=== PATIENT | male | born 1960 ===

== ENCOUNTER → 2021-02-12 | Day surgery (SDC) | payer OTHER | END | disposition home or self-care (01) | LOC: ADM 02-10 14:30 → AMB-ENDOS 07:12 | PROVIDERS: ATTEND Colon & Rectal Surgery | DX: D12.5 Benign neoplasm of sigmoid colon (principal); K64.0 First degree hemorrhoids; Z20.822 Contact with and (suspected) exposure to COVID-19; Z12.11 Encounter for screening for malignant neoplasm of colon ==